=== PATIENT | male | born 1950 | race Caucasian/White ===

== ENCOUNTER 2018-11-07 00:53 | Emergency (ER) | payer MEDICARE, OTHER ==
[2018-11-07] MEDS ORDERED: 0.9 % SODIUM CHLORIDE 1,000 ML IV ONE ×2 (01:01→02:21)
[2018-11-07] MEDS ORDERED: ONDANSETRON HCL/PF 4 MG/ 2ML VIAL IVP ONE (01:01)
--- NOTE | 2018-11-07 01:13 | ED Physician Documentation ---
General Adult - HISTORIAN Historian: patient - HPI Stated Complaint: nausea, diarrhea Chief Complaint: General Adult Additional Information: Hourly diarrhea since 2199 last evening. Retching and dry heaves. Has urinated 3 times since 2199. Thinks there was blood in stool before this illness began. Wonders if he has volvulus. No abdominal pain unless he is retching. nad daughter have had similar symptoms and have recovered or are recovering. - ROS CONST: denies: fever - PAST HX Past History: none Other History: none Surgeries/Procedures: none Allergies/Adverse Reactions: Allergies Allergy/AdvReac Type Severity Reaction Status Date / Time latex Allergy Verified 11/07/18 01:13 Home Medications: Ambulatory Orders Medication Instructions Recorded Ondansetron HCl Rapdis [Zofran Odt] 4 mg PO Q8 PRN #10 tab 11/07/18 - SOCIAL HX Smoking History: non-smoker Alcohol Use: none Drug Use: none - FAMILY HX Family History: No - REVIEWED ASSESSMENTS Nursing Assessment Reviewed: Yes Vitals Reviewed: Yes Progress - Progress Progress: Labs ok. Urine clean. 0230, pink, smiling, more relaxed. Will give 2nd L NS then home. ED Results Lab/Radiology - Orders Orders: ED Orders Category Date Time Status Place IV Lock 1T Care 11/07/18 01:01 Active CBC/PLATELET/DIFF Routine Lab 11/07/18 Ordered CMP Routine Lab 11/07/18 Ordered URINALYSIS Routine Lab 11/07/18 Ordered 0.9 % Sodium Chloride [Normal Saline] 1,000 ml Med 11/07/18 01:01 Active IV Q1H Ondansetron HCl/Pf [Zofran 4 mg/2 ml] Med 11/07/18 01:01 Discontinued 4 mg IVP NOW ONE General Adult Physical Exam - PHYSICAL EXAM GENERAL APPEARANCE: mild distress EENT: eye inspection normal, ENT inspection normal, pharynx normal (Mallampati 2), no nystagmus NECK: normal inspection, supple RESPIRATORY: no resp distress, breath sounds normal CVS: reg rate & rhythm, heart sounds normal, no murmur ABDOMEN: soft, normal bowel sounds, non-tender BACK: normal inspection, no CVA tenderness SKIN: warm/dry, normal color EXTREMITIES: normal range of motion (gait and stance), no evidence of injury NEURO: CN's nml as tested, motor nml, sensation nml, cognition normal Discharge Clincal Impression: Nausea vomiting and diarrhea Prescriptions: Ondansetron HCl Rapdis [Zofran Odt] 4 mg PO Q8 PRN #10 tab PRN Reason: Nausea / Vomiting Referrals: Samantha Tinsley MD [Primary Care Provider] - 2 Days Condition: Good Disposition: 01 HOME, SELF-CARE Decision to Admit: NO Decision Time: 02:40
[2018-11-07 03:25] VITALS: BP 127/71
[2018-11-07 07:43] LABS: BASOPHILS % 0.5 (0.0-1.5); EOSINOPHILS % 0.7 % (0.0-6.8); MEAN CORPUSCULAR HEMOGLOBIN 28.5 pg (28.0-34.0); MONOCYTES % 4.6 % (0.0-11.0); NEUTROPHILS # 5.4 # k/uL (1.4-7.7)
[2018-11-07 11:24] LABS: APPEARANCE,URINE CLEAR (CLEAR); COLOR,URINE YELLOW (YELLOW)
[2018-11-07 11:25] LABS: eGFR (Non-African) 58
[2018-11-07 11:25] LABS: OCCULT BLOOD,URINE NEGATIVE (NEGATIVE); PH URINE 5.5 (5.0 - 8.0); UROBILINOGEN URINE 0.2 Eu (0.2-1.0)
== END 2018-11-07 03:22 | disposition home or self-care (01) ==
LOC: ED 00:53
DX: R11.2 Nausea with vomiting, unspecified (principal); R19.7 Diarrhea, unspecified
CPT/HCPCS: 36415; 80053; 81002; 85025; 96374; 99282; 99284; J2405; J7030; S1016

== ENCOUNTER 2019-02-02 13:07 | Outpatient (CLI) | payer MEDICARE, OTHER ==
[2019-02-02 13:25] LABS: MEAN CORPUSCULAR HEMOGLOBIN 27.9 pg (28.0-34.0)
[2019-02-02 13:26] LABS: MONOCYTES % 7.1 % (0.0-11.0); NEUTROPHILS # 3.3 # k/uL (1.4-7.7)
[2019-02-02 13:49] LABS: eGFR (Non-African) > 60
== END 2019-02-02 13:10 ==
LOC: LAB 13:07
PROVIDERS: ATTEND Family Medicine
DX: L29.9 Pruritus, unspecified (principal)
CPT/HCPCS: 36415; 80053; 85025